=== PATIENT | male | born 1975 ===

== ENCOUNTER 2018-04-17 10:42 | Outpatient (CLI) | payer OTHER ==
[~2018-04-17] VITALS: Ht 188 cm; Wt 226.8 kg
== END 2018-04-17 11:00 | disposition home or self-care (01) ==
LOC: OFIC 805 10:42
DX: H60.8X3 Other otitis externa, bilateral (principal); H61.23 Impacted cerumen, bilateral

== ENCOUNTER 2018-04-17 12:30 | Outpatient (CLI) | payer OTHER | END 2018-04-17 12:49 | disposition home or self-care (01) | LOC: LAB 12:30 | DX: H61.303 Acquired stenosis of external ear canal, unspecified, bilateral (principal) ==

== ENCOUNTER 2018-04-21 09:54 | Outpatient (CLI) | payer OTHER ==
[~2018-04-21] VITALS: Ht 182.9 cm; Wt 226.8 kg
== END 2018-04-21 10:10 | disposition home or self-care (01) ==
LOC: OFIC 805 09:54
DX: H91.8X3 Other specified hearing loss, bilateral (principal); H60.8X3 Other otitis externa, bilateral